=== PATIENT | female | born 1980 | race Native Hawaiian/Other Pacific Islander ===

== ENCOUNTER 2018-10-21 17:35 | Inpatient (IN) ==
[2018-10-21] MEDS ORDERED: Sod Chloride 0.9% Inj 1,000 ML IV.SIG ONE (17:56)
--- NOTE | 2018-10-21 18:06 | ED ---
HPI General Chief complaint: Diabetic Stated complaint: Diabetes/Dizzy Complaint Time Seen by Provider: 10/21/18 17:42 History of Present Illness HPI narrative: This is a 38-year-old female with history of diabetes who presents for evaluation of dizziness and hyperglycemia. She reports that 2 weeks ago she was treated with 3 medications, 1 of them an antibiotic, the other 2 are unknown for treatment of a cough. She reports that she completed these medications 1 week ago. She reports over the past few days she has had dizziness, nausea and vomiting, elevated blood sugar as high as 500 at home. She reports that she still has a dry cough. Denies fevers, chills, chest pain, shortness of breath, abdominal pain, dysuria. She reports that she has been compliant with her farxiga and pioglitazone. No other complaints at this time. Related Data Home Medications Medication Instructions Recorded Confirmed dapagliflozin [Farxiga] 10 mg PO DAILY 10/21/18 10/21/18 pioglitazone 15 mg PO DAILY 10/21/18 10/21/18 Allergies Allergy/AdvReac Type Severity Reaction Status Date / Time No Known Allergies Allergy Verified 10/21/18 17:42 Review of Systems ROS: all other systems reviewed are negative PMFSH Social History Social History Smoking Status: Unknown if ever smoked How Often Do You Have a Drink Containing Alcohol: Unable to Obtain Recent Travel in [facility] within the Last 8 Weeks: No Recent Out of Country Travel within the Last 8 Weeks: No Immunization History Tetanus Immunization: Unsure Exam Narrative Exam Narrative: GENERAL: Well-developed well-nourished female no acute distress SKIN: Warm and dry. HEAD: Atraumatic. Normocephalic. EYES: Pupils equal and round. No scleral icterus. No injection or drainage. ENT: No nasal bleeding or discharge. Mucous membranes pink and moist. NECK: Trachea midline. No JVD. CARDIOVASCULAR: Regular rate and rhythm. No murmur appreciated. RESPIRATORY: No accessory muscle use. Clear to auscultation. Breath sounds equal bilaterally. No crackles no wheezing no rhonchi GASTROINTESTINAL: Abdomen soft, non-tender, nondistended. Hepatic and splenic margins not palpable. No guarding MUSCULOSKELETAL: No obvious deformities. No clubbing. No cyanosis. No edema. NEUROLOGICAL: Awake and alert. No obvious cranial nerve deficits. Motor grossly within normal limits. Normal speech. Course Initial Documented Vital Signs Temperature 97.9 F 10/21/18 17:38 Pulse Rate 102 H 10/21/18 17:38 Respiratory Rate 20 10/21/18 17:38 Blood Pressure 137/63 10/21/18 17:38 Pulse Oximetry 98 10/21/18 17:38 Last Documented Vital Signs Temperature 97.9 F 10/21/18 17:38 Pulse Rate 102 H 10/21/18 17:38 Respiratory Rate 20 10/21/18 17:38 Blood Pressure 137/63 10/21/18 17:38 Pulse Oximetry 98 10/21/18 17:38 Medical Decision Making MDM Narrative Medical decision making narrative: The patient was placed on ECG monitoring pulse oximetry. Lab work, chest x-ray ordered. Patient was given IV fluids and Zofran. EKG was obtained revealing sinus rhythm with 97, QTC is 508, no previous EKGs for comparison. Chest x-ray reveals a left upper lobe infiltrate. The patient will be treated with Rocephin and doxycycline, will avoid fluoroquinolones and macrolides given the QT prolongation. Blood sugars 384, potassium is 3.3, oral potassium chloride, 6 units of insulin administered. The patient will be admitted for further treatment. Medical Screen Exam Complete: Yes Emergency Medical Condition: Yes Differential Diagnosis Differential Diagnosis: Hyperglycemia, DKA, gastroenteritis, bronchitis, pneumonia Lab Data Result diagrams: 10/21/18 18:26 10/21/18 18:26 POC Results POC Urine Results Negative Lab Results 10/21/18 10/21/18 10/21/18 Range/Units 18:26 18:26 18:26 WBC 9.4 (4.0-11.0) th/mm3 RBC 4.17 (4.00-5.30) mil/mm3 Hgb 11.1 L (11.6-15.3) gm/dL Hct 34.6 L (35.0-46.0) % MCV 83.1 (80.0-100.0) fL MCH 26.7 L (27.0-34.0) pg MCHC 32.1 (32.0-36.0) % RDW 14.9 (11.6-17.2) % Plt Count 371 (150-450) th/mm3 MPV 9.1 (7.0-11.0) fL Neut % (Auto) 63.7 (16.0-70.0) % Lymph % (Auto) 25.8 (9.0-44.0) % [place] % (Auto) 6.7 (0.0-8.0) % Eos % (Auto) 3.4 (0.0-4.0) % Baso % (Auto) 0.4 (0.0-2.0) % Neut # (Auto) 6.0 (1.8-7.7) th/mm3 Lymph # (Auto) 2.4 (1.0-4.8) th/mm3 [place] # (Auto) 0.6 (0.0-0.9) th/mm3 Eos # (Auto) 0.3 (0.0-0.4) th/mm3 Baso # (Auto) 0.0 (0.0-0.2) th/mm3 WBC Differential . Differential Comment Auto diff final Sodium 134 L (136-145) meq/L Potassium 3.3 L (3.5-5.1) meq/L Chloride 96 L (98-107) meq/L Carbon Dioxide 30.7 (21.0-32.0) meq/L Anion Gap 7 (5-15) meq/L BUN 13 (7-18) mg/dL Creatinine 0.83 (0.50-1.00) mg/dL Estimated GFR 77 L (>89) mL/min POC Glucose (68-110) mg/dl Random Glucose 384 H (74-106) mg/dL Calcium 8.8 (8.5-10.1) mg/dL Magnesium 1.8 (1.5-2.5) mg/dL Beta-Hydroxybutyric Acd 0.11 (0.00-0.39) mmol/L Urine Color Straw (Yellw/Straw) Urine Clarity Clear (Clear) Urine pH 7.0 (5.0-8.5) Ur Specific [place] 1.015 (1.002-1.035) Urine Protein Negative (Neg-Trace) mg/dL Urine Glucose (UA) 500 or greater (Negative) mg/dL Urine Ketones Negative (Negative) mg/dL Urine Occult Blood Negative (Negative) Urine Nitrate Negative (Negative) Urine Bilirubin Negative (Negative) Urine Urobilinogen Less than 2 (Less than 2) mg/dL Ur Leukocyte Esterase Negative (Negative) Urine RBC Less than 1 (0-3) /hpf Urine WBC 1 (0-5) /hpf Ur Squamous Epith Cells 3 (0-5) /hpf Micro UA Comment Culture not ind Ur Microscopic Review Not Reportable Urine Culture Comments Culture not ind 10/21/18 10/21/18 Range/Units 18:26 18:53 WBC (4.0-11.0) th/mm3 RBC (4.00-5.30) mil/mm3 Hgb (11.6-15.3) gm/dL Hct (35.0-46.0) % MCV (80.0-100.0) fL MCH (27.0-34.0) pg MCHC (32.0-36.0) % RDW (11.6-17.2) % Plt Count (150-450) th/mm3 MPV (7.0-11.0) fL Neut % (Auto) (16.0-70.0) % Lymph % (Auto) (9.0-44.0) % [place] % (Auto) (0.0-8.0) % Eos % (Auto) (0.0-4.0) % Baso % (Auto) (0.0-2.0) % Neut # (Auto) (1.8-7.7) th/mm3 Lymph # (Auto) (1.0-4.8) th/mm3 [place] # (Auto) (0.0-0.9) th/mm3 Eos # (Auto) (0.0-0.4) th/mm3 Baso # (Auto) (0.0-0.2) th/mm3 WBC Differential Differential Comment Sodium (136-145) meq/L Potassium (3.5-5.1) meq/L Chloride (98-107) meq/L Carbon Dioxide (21.0-32.0) meq/L Anion Gap (5-15) meq/L BUN (7-18) mg/dL Creatinine (0.50-1.00) mg/dL Estimated GFR (>89) mL/min POC Glucose 367 H (68-110) mg/dl Random Glucose (74-106) mg/dL Calcium (8.5-10.1) mg/dL Magnesium Cancelled (1.5-2.5) mg/dL Beta-Hydroxybutyric Acd (0.00-0.39) mmol/L Urine Color (Yellw/Straw) Urine Clarity (Clear) Urine pH (5.0-8.5) Ur Specific [place] (1.002-1.035) Urine Protein (Neg-Trace) mg/dL Urine Glucose (UA) (Negative) mg/dL Urine Ketones (Negative) mg/dL Urine Occult Blood (Negative) Urine Nitrate (Negative) Urine Bilirubin (Negative) Urine Urobilinogen (Less than 2) mg/dL Ur Leukocyte Esterase (Negative) Urine RBC (0-3) /hpf Urine WBC (0-5) /hpf Ur Squamous Epith Cells (0-5) /hpf Micro UA Comment Ur Microscopic Review Urine Culture Comments Imaging Data Radiologist's impression: Chest X-Ray 10/21/18 17:56 CONCLUSION: 1. Ill-defined focal parenchymal opacity in the left upper lobe medially which may reflect developing airspace disease in the appropriate clinical setting. Discharge Plan Discharge Disposition Patient Disposition: ED Admit(ED Internal Use Only) Discharge Condition Condition: Stable Discharge Details Diagnosis: Pneumonia, Prolonged QT interval, Hyperglycemia Physicians Team ED Provider: Della Johnson ED Midlevel Provider: Israel Salas Primary Care Provider: Primary Care Yadira Mendoza Rxs /Orders / Referrals /Forms Prescriptions: No Action pioglitazone 15 mg Tablet 15 mg PO DAILY RF: 0 dapagliflozin [Farxiga] 10 mg Tablet 10 mg PO DAILY RF: 0 Status ED Status: Pending Admission
--- NOTE | 2018-10-21 18:24 | XR ---
EXAM DATE: 10/21/2018 6:17 PM EST AGE/SEX: 38 years / Female INDICATIONS: Cough and dizziness. CLINICAL DATA: This is the patient's initial encounter. Patient reports that signs and symptoms have been present for 1 day and indicates a pain score of 0/10. MEDICAL/SURGICAL HISTORY: Diabetes mellitus type II. None. COMPARISON: . FINDINGS: Focal ill-defined parenchymal opacity in the left upper lobe medially. The cardiomediastinal contours are unremarkable. Osseous structures are intact. CONCLUSION: 1. Ill-defined focal parenchymal opacity in the left upper lobe medially which may reflect developin g airspace disease in the appropriate clinical setting. Electronically signed by: Syed Blackmon MD Board Certified Radiologist 10/21/2018 6:23 PM LUIS A T
[2018-10-21 18:54] LABS: Baso % (Auto) 0.4 % (0.0-2.0); Eos # (Auto) 0.3 th/mm3 (0.0-0.4); Eos % (Auto) 3.4 % (0.0-4.0); Hematocrit 34.6 % (35.0-46.0); Hemoglobin 11.1 gm/dL (11.6-15.3); Lymph # (Auto) 2.4 th/mm3 (1.0-4.8); Lymph % (Auto) 25.8 % (9.0-44.0); Mean Corpuscular HGB Conc 32.1 % (32.0-36.0); Mean Corpuscular Hemoglobin 26.7 pg (27.0-34.0); Mean Corpuscular Volume 83.1 fL (80.0-100.0); Mean Platelet Volume 9.1 fL (7.0-11.0); Mono # (Auto) 0.6 th/mm3 (0.0-0.9); Mono % (Auto) 6.7 % (0.0-8.0); Neut % (Auto) 63.7 % (16.0-70.0); Platelet Count 371 th/mm3 (150-450); Red Blood Count 4.17 mil/mm3 (4.00-5.30); Red Cell Distribution Width 14.9 % (11.6-17.2); White Blood Count 9.4 th/mm3 (4.0-11.0)
[2018-10-21 19:09] LABS: Bilirubin,Urine Negative (Negative); Clarity,Urine Clear (Clear); Color,Urine Straw (Yellw/Straw); Glucose,Urine (UA) 500 or Greater mg/dL (Negative); Leukocyte Esterase,Urine Negative (Negative); Nitrite,Urine Negative (Negative); Specific Gravity,Urine 1.015 (1.002-1.035); Squamous Epithelial Cell,Urine 3 /hpf (0-5)
[2018-10-21 19:23] LABS: Calcium 8.8 mg/dL (8.5-10.1); Carbon Dioxide 30.7 meq/L (21.0-32.0); Potassium 3.3 meq/L (3.5-5.1)
[2018-10-21 19:24] LABS: Beta Hydroxybutyric Acid 0.11 mmol/L (0.00-0.39)
[2018-10-21 19:42] LABS: Magnesium 1.8 mg/dL (1.5-2.5)
--- NOTE | 2018-10-21 20:31 | P.HPFP ---
History of Present Illness Primary Care Physician: No Primary Care Physician <Con Camp - 10/22/18 15:10> No Primary Care Physician <ReynaldoBan Lima Espinoza - 10/21/18 20:31> History of Present Illness: 30-year-old female presenting to the emergency department with a complaint of elevated blood sugars and coughing. Patient has been seen in [facility] for uncontrolled blood sugars associated with vomiting and dizziness for 4-5 days. She endorses dizziness associated with this nausea and vomiting. She also endorses nausea. She does check her blood sugars at home, they are commonly in the 100-150 range, however they have been running in the 400-500 range over the last several days. Patient also has a persistent, dry cough lasting approximately 4-5 months. She has been evaluated with a chest x-ray on 05/19/18 that was negative, and recently completed a course of azithromycin and prednisone with minimal improvement. <Con Camp - 10/22/18 15:10> 30-year-old female with a history of uncontrolled type 2 diabetes and hyperlipidemia presents to the ED for elevated blood sugars. She is a patient of Dr. Vega. Patient is here with her daughter. Patient was just recently seen in family medicine clinic yesterday for uncontrolled blood sugars associated with vomiting and dizziness. Patient was advised to go to the ER at that time. Patient states that she was busy picking up her kids yesterday and did not have a chance to come to the ED. Patient states that she has been feeling dizzy 2-3 times every day for the past week. States that she is also been nauseous and dry heaving. She usually checks her sugars when she is feeling these symptoms and states that her sugars have been around 400-500 every day. Patient states that she is currently on pioglitazone 50 mg daily and Farxiga 10mg daily. Reports that she takes an extra dose of her pioglitazone as needed when her sugars are high. Per [facility] EMR, patient has been unable to be scheduled with the import specialist due to noncompliance. It was noted that she needed to first attend a diabetic education class and it was recommended that she be started on Bydureon 2mg Subq 1week. She is very hesitant about being on insulin and was unable to follow-up with Dr. Koehler about administration of the drug. Last A1c was on 09/23/18, 10.2%. Patient also complains of a 4-5-month history of persistent dry cough. She was prescribed at the clinic 2 weeks ago, 3-day of azithromycin, 5-day of prednisone , tessalon pearls, and nasacort. Chest x-ray on 05/19/18 was negative. Patient states that it smells like fish when she coughs. She denies any bloody sputum. Patient was born in [facility] and was last there 13 years ago. Patient has never been tested for tuberculosis. Denies sick contacts, fevers, night sweats , chills, weight loss, shortness of breath, and chest pain. PMHx: Type 2 diabetes hyperlipidemia PSHx: 1998, 2001, 2002 Allergies: none FHx: Dad- HTN, DM-60s- stroke Mom- DM- 50- stroke Brothers-DM SHx: Housework 3 kids never smoker Denies drinking Denies illicit drug use <Ban Jacobs - 10/22/18 02:11> - Diagnosis (1) Uncontrolled type 2 diabetes mellitus (2) Pneumonia (3) Prolonged QT interval (4) Hypokalemia (5) Anemia (6) Hyperlipidemia (7) Nutrition, metabolism, and development symptoms <Con Camp - 10/22/18 15:10> (1) Uncontrolled type 2 diabetes mellitus (2) Pneumonia (3) Prolonged QT interval (4) Hypokalemia (5) Anemia (6) Hyperlipidemia (7) Nutrition, metabolism, and development symptoms <Ban Jacobs - 10/22/18 02:14> Inpatient Certification: I certify that the inpatient services were ordered in accordance with Medicare regulations governing the order. This includes certification that hospital inpatient services are reasonable and necessary and in the case of services not specified as inpatient-only under 42 CFR 419.22(n), that they are appropriately provided as inpatient services in accordance to with the 2-midnight benchmark under 43 CFR 412.3(e) <Con Camp - 10/22/18 15:10> I certify that the inpatient services were ordered in accordance with Medicare regulations governing the order. This includes certification that hospital inpatient services are reasonable and necessary and in the case of services not specified as inpatient-only under 42 CFR 419.22(n), that they are appropriately provided as inpatient services in accordance to with the 2-midnight benchmark under 43 CFR 412.3(e) <Ban Jacobs - 10/21/18 20:31> Estimated Total Length of Stay (Days): 2 <Ban Jacobs Alexis - 10/21/18 20:31> Plans for Post Hospital Care: Home <Ban Jacobs 10/21/18 20:31> Review of Systems All other systems reviewed negative except as stated in HPI <Ban Jacobs - 10/22/18 00:51> PMFSH - History History Provided By: Patient <ReynaldoBan Espinoza - 10/21/18 20:31> - Medical History Medical History: Medical History (Last Updated 10/22/18 @ 00:10 by Ban Jacobs MD, R2) Diabetes Hyperlipidemia <Con Camp - 10/22/18 15:10> Medical History (Last Updated 10/22/18 @ 00:10 by Ban Jacobs MD, R2) Diabetes Hyperlipidemia <Ban Jacobs - 10/22/18 00:51> - Surgical History Surgical History: Surgical History (Last Updated 10/22/18 @ 00:11 by Ban Jacobs MD, R2) S/P <Con Camp - 10/22/18 15:10> Surgical History (Last Updated 10/22/18 @ 00:11 by Ban Jacobs MD, R2) S/P <Ban Jacobs - 10/22/18 00:51> - Family History Family History: Family History (Last Updated 10/22/18 @ 01:53 by Ban Jacobs MD, R2) Mother CVA (cerebral vascular accident) Diabetes HTN (hypertension) Father CVA (cerebral vascular accident) Diabetes HTN (hypertension) <Con Camp - 10/22/18 15:10> Family History (Last Updated 10/22/18 @ 01:53 by Ban Jacobs MD, R2) Mother CVA (cerebral vascular accident) Diabetes HTN (hypertension) Father CVA (cerebral vascular accident) Diabetes HTN (hypertension) <Ban Jacobs - 10/22/18 01:55> - Social History I have reviewed the patient's Social History: Yes <Ban Jacobs T - 01:55> - Tobacco History Smoking Status: Never smoker <Ban Jacobs - 10/22/18 00:51> - Alcohol History How Often Do You Have a Drink Containing Alcohol: Unable to Obtain <Ban Jacobs T - 10/21/18 20:31> - Travel History Recent Travel in the [place] Within the Last 8 Weeks: No <Ban Jacobs Amato T - 10/21 20:31> Recent Travel Out of the Country Within the Last 8 Weeks: No <Ban Jacobs T - 10/21/18 20:31> - Immunization History Tetanus Immunization: Unsure <Ban Jacobs Amato - 10/21/18 20:31> Medications and Allergies Allergies Allergy/AdvReac Type Severity Reaction Status Date / Time No Known Allergies Allergy Verified 10/21/18 17:42 <Con Camp - 10/22/18 15:10> Home Medications Medication Instructions Recorded Confirmed Type dapagliflozin [Farxiga] 10 mg PO DAILY 10/21/18 10/21/18 History pioglitazone 15 mg PO DAILY 10/21/18 10/21/18 History <Con Camp - 10/22/18 15:10> Active Medications: Active Medications Acetaminophen (Tylenol) 650 mg PO Q4H PRN PRN Reason: Headache and Pain Last Admin: 10/22/18 13:43 Dose: 650 mg Atorvastatin Calcium (Lipitor) 40 mg PO HS DARELL Dextrose (D50w Vial) 50 ml IV.PUSH UNSCH PRN PRN Reason: PER HYPOGLYCEMIA PROTOCOL Glucagon (Glucagon Inj) 1 mg OTHER PRN PRN PRN Reason: for Hypoglycemia Protocol Ceftriaxone Sodium 1,000 mg/ (Sodium Chloride) 100 mls @ 200 mls/hr IV.SIG Q24H DARELL Doxycycline Hyclate 100 mg/ (Sodium Chloride) 100 mls @ 100 mls/hr IV.SIG Q12H DARELL Last Infusion: 10/22/18 12:45 Dose: Infused Insulin Aspart (Novolog Insulin Correctional Sugar Inj) 0 unit SQ ACHS DARELL; Protocol Last Admin: 10/22/18 13:56 Dose: 5 unit Insulin Detemir (Levemir Inj) 5 unit SQ BID DARELL Last Admin: 10/22/18 09:47 Dose: 5 unit Promethazine HCl (Phenergan) 12.5 mg PO Q6H PRN PRN Reason: nausea/vomiting Skin Test Antigens (Skin Test Result) 1 each OTHER Q24H DARELL Stop: 10/24/18 21:14 Sodium Chloride (Ns Flush) 2 ml IV.FLUSH BID DARELL Last Admin: 10/22/18 11:41 Dose: 2 ml Sodium Chloride (Ns Flush) 2 ml IV.FLUSH PRN PRN PRN Reason: FLUSH AFTER USING IV ACCESS <Con Camp - 10/22/18 15:10> Active Medications Sodium Chloride (Ns Flush) 2 ml IV.FLUSH PRN PRN PRN Reason: FLUSH AFTER USING IV ACCESS Sodium Chloride (Ns Flush) 2 ml IV.FLUSH BID DARELL Sodium Chloride (Ns Flush) 2 ml IV.FLUSH PRN PRN PRN Reason: FLUSH AFTER USING IV ACCESS <Ban Jacobs T - 10/21/18 20:31> Exam Vital signs: Vital Signs 10/21/18 17:38 10/21/18 21:29 10/22/18 04:24 Temperature 97.9 F 97.6 F Pulse Rate 102 H 94 H 84 Respiratory Rate 20 18 18 Blood Pressure 137/63 119/59 L 108/61 Pulse Oximetry 98 99 96 10/22/18 08:00 10/22/18 12:00 Temperature 98.2 F 98.4 F Pulse Rate 83 81 Respiratory Rate 16 16 Blood Pressure 109/61 100/64 Pulse Oximetry 96 99 Intake & Output 10/21/18 10/22/18 10/22/18 18:59 06:59 18:59 Intake Total 1440 / 1440 100 / 100 Balance 1440 / 1440 100 / 100 Weight 58.967 kg Intake: IV 1200 / 1200 100 / 100 Doxy 100 Inj 100 MG In NS Inj 100 / 100 100 / 100 100 ML @ 100 mls/hr IV.SIG Q12H DARELL Rx#:[id number] Oral 240 / 240 Other: # Voids 0 <Con Camp - 10/22/18 15:10> Vital Signs 10/21/18 17:38 Temperature 97.9 F Pulse Rate 102 H Respiratory Rate 20 Blood Pressure 137/63 Pulse Oximetry 98 Intake & Output 10/21/18 10/21/18 10/22/18 06:59 18:59 06:59 Weight 58.967 kg <Ban Jacobs [facility] 10/21/18 20:31> Narrative: CONSTITUTIONAL/GEN: Healthy-appearing female, normally nourished, in NAD. EYES: conjunctiva normal, PERRLA, EOMI. ENT: Mouth and pharynx normal. LUNGS: clear A-P, respiratory effort is normal. PSYCH/MENTAL STATUS: Alert and oriented x 3. <Con Camp - 10/22/18 15:10> - Constitutional no acute distress <Ban Jacobs [facility] 10/22/18 01:55> - Routine HEENT Exam Head: Present: normocephalic, atraumatic <Ban Jacobs 10/22/18 01:55> Eye: Present: EOMI, PERRL <Ban Jacobs [facility] 10/22/18 01:55> ENT: Present: mucous membranes moist <Ban Jacobs [facility] 10/22/18 01:55> - Routine Neck Exam Present: supple, full ROM. Absent: JVD, carotid bruit <Ban Jacobs [facility] 01:55> - Routine Respiratory Exam Present: CTA bilaterally. Absent: accessory muscle use, wheezes, crackles < Ban Jacobs 10/22/18 01:55> - Routine Cardiovascular Exam Present: RRR, S1, S2. Absent: murmur, gallop, rubs <Ban Jacobs [facility] 01:55> - Routine Abdominal Exam Present: soft, normoactive bowel sounds. Absent: tenderness, rebound, guarding <Ban Jacobs [facility] 10/22/18 01:55> - Routine Extremities Exam Absent: cyanosis, clubbing, edema <Ban Jacobs [facility] 10/22/18 01:55> - Routine Neurological Exam Present: alert, oriented X3 <Ban Jacobs [facility] 10/22/18 01:55> Results - Labs Result diagrams: 10/22/18 06:51 10/22/18 06:51 <Con Camp - 10/22/18 15:10> Abnormal lab results 10/21/18 10/21/18 10/21/18 Range/Units 18:26 18:26 18:53 Hgb 11.1 L (11.6-15.3) gm/dL Hct 34.6 L (35.0-46.0) % MCH 26.7 L (27.0-34.0) pg Eos % (Auto) (0.0-4.0) % Sodium 134 L (136-145) meq/L Potassium 3.3 L (3.5-5.1) meq/L Chloride 96 L (98-107) meq/L Estimated GFR 77 L (>89) mL/min POC Glucose 367 H (68-110) mg/dl Random Glucose 384 H (74-106) mg/dL AST (15-37) U/L Albumin (3.4-5.0) g/dL 10/22/18 10/22/18 10/22/18 Range/Units 01:58 06:51 06:51 Hgb (11.6-15.3) gm/dL Hct (35.0-46.0) % MCH 26.9 L (27.0-34.0) pg Eos % (Auto) 4.6 H (0.0-4.0) % Sodium (136-145) meq/L Potassium 3.3 L (3.5-5.1) meq/L Chloride (98-107) meq/L Estimated GFR (>89) mL/min POC Glucose 116 H (68-110) mg/dl Random Glucose 154 H D (74-106) mg/dL AST 12 L (15-37) U/L Albumin 3.1 L (3.4-5.0) g/dL 10/22/18 10/22/18 Range/Units 09:45 13:47 Hgb (11.6-15.3) gm/dL Hct (35.0-46.0) % MCH (27.0-34.0) pg Eos % (Auto) (0.0-4.0) % Sodium (136-145) meq/L Potassium (3.5-5.1) meq/L Chloride (98-107) meq/L Estimated GFR (>89) mL/min POC Glucose 153 H 256 H (68-110) mg/dl Random Glucose (74-106) mg/dL AST (15-37) U/L Albumin (3.4-5.0) g/dL Short CBC 10/21/18 10/22/18 Range/Units 18:26 06:51 WBC 9.4 8.7 (4.0-11.0) th/mm3 Hgb 11.1 L 11.7 (11.6-15.3) gm/dL Hct 34.6 L 36.2 (35.0-46.0) % Plt Count 371 402 (150-450) th/mm3 BMP 10/21/18 10/22/18 18:26 06:51 Sodium 134 L 141 Potassium 3.3 L 3.3 L Chloride 96 L 103 Carbon Dioxide 30.7 31.7 BUN 13 8 Creatinine 0.83 0.58 Calcium 8.8 8.7 Liver Function 10/22/18 Range/Units 06:51 Total Bilirubin 0.3 (0.2-1.0) mg/dL AST 12 L (15-37) U/L ALT 17 (10-53) U/L Alkaline Phosphatase 61 (45-117) U/L Albumin 3.1 L (3.4-5.0) g/dL Urine 10/21/18 Range/Units 18:26 Urine Color Straw (Yellw/Straw) Urine Clarity Clear (Clear) Urine pH 7.0 (5.0-8.5) Ur Specific [place] 1.015 (1.002-1.035) Urine Protein Negative (Neg-Trace) mg/dL Urine Glucose (UA) 500 or greater (Negative) mg/dL <Con Capm - 10/22/18 15:10> Abnormal lab results 10/21/18 10/21/18 10/21/18 Range/Units 18:26 18:26 18:53 Hgb 11.1 L (11.6-15.3) gm/dL Hct 34.6 L (35.0-46.0) % MCH 26.7 L (27.0-34.0) pg Sodium 134 L (136-145) meq/L Potassium 3.3 L (3.5-5.1) meq/L Chloride 96 L (98-107) meq/L Estimated GFR 77 L (>89) mL/min POC Glucose 367 H (68-110) mg/dl Random Glucose 384 H (74-106) mg/dL Short CBC 10/21/18 Range/Units 18:26 WBC 9.4 (4.0-11.0) th/mm3 Hgb 11.1 L (11.6-15.3) gm/dL Hct 34.6 L (35.0-46.0) % Plt Count 371 (150-450) th/mm3 BMP 10/21/18 18:26 Sodium 134 L Potassium 3.3 L Chloride 96 L Carbon Dioxide 30.7 BUN 13 Creatinine 0.83 Calcium 8.8 Urine 10/21/18 Range/Units 18:26 Urine Color Straw (Yellw/Straw) Urine Clarity Clear (Clear) Urine pH 7.0 (5.0-8.5) Ur Specific [place] 1.015 (1.002-1.035) Urine Protein Negative (Neg-Trace) mg/dL Urine Glucose (UA) 500 or greater (Negative) mg/dL <Ban Jacobs T - 10/22/18 01:55> - Imaging Impressions Chest X-Ray 10/21/18 17:56 CONCLUSION: 1. Ill-defined focal parenchymal opacity in the left upper lobe medially which may reflect developing airspace disease in the appropriate clinical setting. Chest X-Ray 10/22/18 00:00 CONCLUSION: No acute cardiopulmonary disease. <Con Camp - 10/22/18 15:10> Impressions Chest X-Ray 10/21/18 17:56 CONCLUSION: 1. Ill-defined focal parenchymal opacity in the left upper lobe medially which may reflect developing airspace disease in the appropriate clinical setting. <Ban Jacobs T - 10/22/18 01:55> Caprini VTE Risk Assessment Caprini VTE Risk Assessment: No/Low Risk (score <= 1) <Ban Jacobs T - 01:55> Caprini Risk Assessment Model: Point Value = 1 Point Value = 2 Point Value = 3 Point Value = 5 Age 41-60 Minor surgery BMI > 25 kg/m2 Swollen legs Varicose veins or History of unexplained or recurrent spontaneous Oral contraceptives or hormone replacement Sepsis (< 1 month) Serious lung disease, including pneumonia (< 1 month) Abnormal pulmonary function Acute myocardial infarction Congestive heart failure (< 1 month) History of inflammatory bowel disease Medical patient at bed rest Age 61-74 Arthroscopic surgery Major open surgery (> 45 min) Laparoscopic surgery (> 45 min) Malignancy Confined to bed (> 72 hours) Immobilizing plaster cast Central venous access Age >= 75 History of VTE Family history of VTE Factor V Leiden Prothrombin [id number] Lupus anticoagulant Anticardiolipin antibodies Elevated serum homocysteine Heparin-induced thrombocytopenia Other congenital or acquired thrombophilia Stroke (< 1 month) Elective arthroplasty Hip, pelvis, or leg fracture Acute spinal cord injury (< 1 month) <Con Camp - 10/22/18 15:10> Point Value = 1 Point Value = 2 Point Value = 3 Point Value = 5 Age 41-60 Minor surgery BMI > 25 kg/m2 Swollen legs Varicose veins or History of unexplained or recurrent spontaneous Oral contraceptives or hormone replacement Sepsis (< 1 month) Serious lung disease, including pneumonia (< 1 month) Abnormal pulmonary function Acute myocardial infarction Congestive heart failure (< 1 month) History of inflammatory bowel disease Medical patient at bed rest Age 61-74 Arthroscopic surgery Major open surgery (> 45 min) Laparoscopic surgery (> 45 min) Malignancy Confined to bed (> 72 hours) Immobilizing plaster cast Central venous access Age >= 75 History of VTE Family history of VTE Factor V Leiden Prothrombin [id number] Lupus anticoagulant Anticardiolipin antibodies Elevated serum homocysteine Heparin-induced thrombocytopenia Other congenital or acquired thrombophilia Stroke (< 1 month) Elective arthroplasty Hip, pelvis, or leg fracture Acute spinal cord injury (< 1 month) <Ban Jacobs - 10/22/18 01:55> Prophylaxis Regimen: Total Risk Factor Score Risk Level Prophylaxis Regimen 0-1 Low Early ambulation 2 Moderate Order ONE of the following: *Sequential Compression Device (SCD) *Heparin 5000 units SQ BID 3-4 Higher Order ONE of the following medications: *Heparin 5000 units SQ TID *Enoxaparin/Lovenox 40 mg SQ daily (WT < 150 kg, CrCl > 30 mL/min) *Enoxaparin/Lovenox 30 mg SQ daily (WT < 150 kg, CrCl > 10-29 mL/min) *Enoxaparin/Lovenox 30 mg SQ BID (WT < 150 kg, CrCl > 30 mL/min) AND/OR *Sequential Compression Device (SCD) 5 or more Highest Order ONE of the following medications: *Heparin 5000 units SQ TID (Preferred with Epidurals) *Enoxaparin/Lovenox 40 mg SQ daily (WT < 150 kg, CrCl > 30 mL/min) *Enoxaparin/Lovenox 30 mg SQ daily (WT < 150 kg, CrCl > 10-29 mL/min) *Enoxaparin/Lovenox 30 mg SQ BID (WT < 150 kg, CrCl > 30 mL/min) AND *Sequential Compression Device (SCD) <Con Camp - 10/22/18 15:10> Total Risk Factor Score Risk Level Prophylaxis Regimen 0-1 Low Early ambulation 2 Moderate Order ONE of the following: *Sequential Compression Device (SCD) *Heparin 5000 units SQ BID 3-4 Higher Order ONE of the following medications: *Heparin 5000 units SQ TID *Enoxaparin/Lovenox 40 mg SQ daily (WT < 150 kg, CrCl > 30 mL/min) *Enoxaparin/Lovenox 30 mg SQ daily (WT < 150 kg, CrCl > 10-29 mL/min) *Enoxaparin/Lovenox 30 mg SQ BID (WT < 150 kg, CrCl > 30 mL/min) AND/OR *Sequential Compression Device (SCD) 5 or more Highest Order ONE of the following medications: *Heparin 5000 units SQ TID (Preferred with Epidurals) *Enoxaparin/Lovenox 40 mg SQ daily (WT < 150 kg, CrCl > 30 mL/min) *Enoxaparin/Lovenox 30 mg SQ daily (WT < 150 kg, CrCl > 10-29 mL/min) *Enoxaparin/Lovenox 30 mg SQ BID (WT < 150 kg, CrCl > 30 mL/min) AND *Sequential Compression Device (SCD) <Ban Jacobs T - 10/21/18 20:31> Assessment and Plan - Assessment (1) Uncontrolled type 2 diabetes mellitus Code(s): E11.65 - Type 2 diabetes mellitus with hyperglycemia Status: Acute (2) Pneumonia Code(s): J18.9 - Pneumonia, unspecified organism Status: Acute (3) Prolonged QT interval Code(s): R94.31 - Abnormal electrocardiogram [ECG] [EKG] Status: Acute (4) Hypokalemia Code(s): E87.6 - Hypokalemia Status: Acute (5) Anemia Code(s): D64.9 - Anemia, unspecified Status: Acute (6) Hyperlipidemia Code(s): E78.5 - Hyperlipidemia, unspecified Status: Acute (7) Nutrition, metabolism, and development symptoms Code(s): R63.8 - Other symptoms and signs concerning food and fluid intake Status: Acute <Con Camp - 10/22/18 15:10> (1) Uncontrolled type 2 diabetes mellitus Code(s): E11.65 - Type 2 diabetes mellitus with hyperglycemia Status: Acute Plan: 30-year-old female with a history of uncontrolled type 2 diabetes and hyperlipidemia presents to the ED dizziness and nausea secondary to elevated blood sugars. -Reports her sugars being 400- 500 at home -A1C on 09/23/18, 10.2% -CMP demonstrates anion gap of 7 -Held home PO meds: dapagliflozin and pioglitazone -Will start patient on Levemir 5units BID and low dose SS -Hypoglycemia protocol in place -roastmaster and Bulk Station Agent consulted (2) Pneumonia Code(s): J18.9 - Pneumonia, unspecified organism Status: Acute Plan: Patient reports 4-5-month history of persistent dry cough. DDx: Bacterial pneumonia vs viral pneumonia vs TB -Chest x-ray demonstrates ill-defined focal parenchymal opacity in the left upper lobe medially which may reflect developing airspace disease. -Pro-calcitonin of 0.04 -Negative for influenza A and B -Legionella and pneumococcal antigen pending -Tuberculin PPD test ordered -Blood cultures x2 pending -Continue Rocephin 1 g IV every 24 hours and doxycycline 100 mg every 12 hours IV (3) Prolonged QT interval Code(s): R94.31 - Abnormal electrocardiogram [ECG] [EKG] Status: Acute Plan: Prolonged QT interval seen on EKG, QTc 517 Continue to monitor with cardiac telemetry Avoid agents that may prolong QT interval (4) Hypokalemia Code(s): E87.6 - Hypokalemia Status: Acute Plan: Potassium 3.3 on admission Patient received 20 mEq orally in the ED Continue to monitor and replace as needed (5) Anemia Code(s): D64.9 - Anemia, unspecified Status: Acute Plan: H&H of 11.1/34.6, MCV of 83.1, most likely due to anemia of chronic disease (6) Hyperlipidemia Code(s): E78.5 - Hyperlipidemia, unspecified Status: Acute Plan: Continue atorvastatin 20 mg at bedtime (7) Nutrition, metabolism, and development symptoms Code(s): R63.8 - Other symptoms and signs concerning food and fluid intake Status: Acute Plan: Fluids: None Diet: Diabetic diet Electrolytes: Monitor and replace as needed Vitals every 4, monitor I's and O's DVT prophylaxis: SCDs <Ban Jacobs - 10/22/18 02:14> - Attending Attestation Patient examined independently of resident physicians, case discussed with resident physicians I have read the above note and agree with the assessment/plan as discussed with me I was involved in all medical decision making for this patient Pneumonia: Antibiotics with Rocephin and doxycycline as patient recently completed a course of azithromycin Legionella and pneumococcal antigen ordered and pending Blood cultures ordered and pending Con Camp MD <Con Camp - 10/22/18 15:10>
[2018-10-21] MEDS ORDERED: Dextrose 50% in Water 50 ML Vial IV.PUSH PRN (20:58)
[2018-10-21] MEDS ORDERED: Tuberculin PPD 5 UNITS/0.1 ML Syringe I-DERMAL ONE (22:00)
[2018-10-21] MEDS: Insulin Detemir Inj 1,000 UNIT/10 ML Vial SQ SCH (23:45)
[2018-10-22] MEDS: Insulin NovoLOG Aspart Correctional Sugar Inj SQ SCH ×5 (02:27→22:02)
[2018-10-22 08:36] LABS: Baso % (Auto) 0.3 % (0.0-2.0); Eos # (Auto) 0.4 th/mm3 (0.0-0.4); Eos % (Auto) 4.6 % (0.0-4.0); Hematocrit 36.2 % (35.0-46.0); Hemoglobin 11.7 gm/dL (11.6-15.3); Lymph # (Auto) 2.3 th/mm3 (1.0-4.8); Lymph % (Auto) 26.2 % (9.0-44.0); Mean Corpuscular HGB Conc 32.4 % (32.0-36.0); Mean Corpuscular Hemoglobin 26.9 pg (27.0-34.0); Mean Corpuscular Volume 83.1 fL (80.0-100.0); Mean Platelet Volume 9.3 fL (7.0-11.0); Mono # (Auto) 0.5 th/mm3 (0.0-0.9); Mono % (Auto) 5.3 % (0.0-8.0); Neut # (Auto) 5.5 th/mm3 (1.8-7.7); Neut % (Auto) 63.6 % (16.0-70.0); Platelet Count 402 th/mm3 (150-450); Red Blood Count 4.35 mil/mm3 (4.00-5.30); White Blood Count 8.7 th/mm3 (4.0-11.0)
--- NOTE | 2018-10-22 09:19 | P.PNFP ---
Subjective Interval history: Patient seen and examined at bedside this morning.She states that she continues to see feel nauseous this morning. Confirms a mild headache. Denies any vomiting overnight. Is open to trying insulin today. Will be open to diabetes education. She also confirms some itching of her feet bilaterally. Is requesting that only female nurses take care of her due to her restoration beliefs. Is able to talk to male providers but cannot have any physical touch. All questions were answered at bedside. She denies any chest pain, shortness of breath, abdominal pain, problems with urination or defecation. <Eraline Woody - 10/22/18 10:11> Results - Labs Result diagrams: 10/22/18 06:51 10/22/18 06:51 <Con Camp - 10/22/18 14:53> Abnormal lab results 10/21/18 10/21/18 10/21/18 Range/Units 18:26 18:26 18:53 Hgb 11.1 L (11.6-15.3) gm/dL Hct 34.6 L (35.0-46.0) % MCH 26.7 L (27.0-34.0) pg Eos % (Auto) (0.0-4.0) % Sodium 134 L (136-145) meq/L Potassium 3.3 L (3.5-5.1) meq/L Chloride 96 L (98-107) meq/L Estimated GFR 77 L (>89) mL/min POC Glucose 367 H (68-110) mg/dl Random Glucose 384 H (74-106) mg/dL AST (15-37) U/L Albumin (3.4-5.0) g/dL 10/22/18 10/22/18 10/22/18 Range/Units 01:58 06:51 06:51 Hgb (11.6-15.3) gm/dL Hct (35.0-46.0) % MCH 26.9 L (27.0-34.0) pg Eos % (Auto) 4.6 H (0.0-4.0) % Sodium (136-145) meq/L Potassium 3.3 L (3.5-5.1) meq/L Chloride (98-107) meq/L Estimated GFR (>89) mL/min POC Glucose 116 H (68-110) mg/dl Random Glucose 154 H D (74-106) mg/dL AST 12 L (15-37) U/L Albumin 3.1 L (3.4-5.0) g/dL 10/22/18 10/22/18 Range/Units 09:45 13:47 Hgb (11.6-15.3) gm/dL Hct (35.0-46.0) % MCH (27.0-34.0) pg Eos % (Auto) (0.0-4.0) % Sodium (136-145) meq/L Potassium (3.5-5.1) meq/L Chloride (98-107) meq/L Estimated GFR (>89) mL/min POC Glucose 153 H 256 H (68-110) mg/dl Random Glucose (74-106) mg/dL AST (15-37) U/L Albumin (3.4-5.0) g/dL Short CBC 10/21/18 10/22/18 Range/Units 18:26 06:51 WBC 9.4 8.7 (4.0-11.0) th/mm3 Hgb 11.1 L 11.7 (11.6-15.3) gm/dL Hct 34.6 L 36.2 (35.0-46.0) % Plt Count 371 402 (150-450) th/mm3 BMP 10/21/18 10/22/18 18:26 06:51 Sodium 134 L 141 Potassium 3.3 L 3.3 L Chloride 96 L 103 Carbon Dioxide 30.7 31.7 BUN 13 8 Creatinine 0.83 0.58 Calcium 8.8 8.7 Liver Function 10/22/18 Range/Units 06:51 Total Bilirubin 0.3 (0.2-1.0) mg/dL AST 12 L (15-37) U/L ALT 17 (10-53) U/L Alkaline Phosphatase 61 (45-117) U/L Albumin 3.1 L (3.4-5.0) g/dL Urine 10/21/18 Range/Units 18:26 Urine Color Straw (Yellw/Straw) Urine Clarity Clear (Clear) Urine pH 7.0 (5.0-8.5) Ur Specific [place] 1.015 (1.002-1.035) Urine Protein Negative (Neg-Trace) mg/dL Urine Glucose (UA) 500 or greater (Negative) mg/dL <Con Camp - 10/22/18 14:53> Abnormal lab results 10/21/18 10/21/18 10/21/18 Range/Units 18:26 18:26 18:53 Hgb 11.1 L (11.6-15.3) gm/dL Hct 34.6 L (35.0-46.0) % MCH 26.7 L (27.0-34.0) pg Eos % (Auto) (0.0-4.0) % Sodium 134 L (136-145) meq/L Potassium 3.3 L (3.5-5.1) meq/L Chloride 96 L (98-107) meq/L Estimated GFR 77 L (>89) mL/min POC Glucose 367 H (68-110) mg/dl Random Glucose 384 H (74-106) mg/dL 10/22/18 10/22/18 Range/Units 01:58 06:51 Hgb (11.6-15.3) gm/dL Hct (35.0-46.0) % MCH 26.9 L (27.0-34.0) pg Eos % (Auto) 4.6 H (0.0-4.0) % Sodium (136-145) meq/L Potassium (3.5-5.1) meq/L Chloride (98-107) meq/L Estimated GFR (>89) mL/min POC Glucose 116 H (68-110) mg/dl Random Glucose (74-106) mg/dL Short CBC 10/21/18 10/22/18 Range/Units 18:26 06:51 WBC 9.4 8.7 (4.0-11.0) th/mm3 Hgb 11.1 L 11.7 (11.6-15.3) gm/dL Hct 34.6 L 36.2 (35.0-46.0) % Plt Count 371 402 (150-450) th/mm3 BMP 10/21/18 18:26 Sodium 134 L Potassium 3.3 L Chloride 96 L Carbon Dioxide 30.7 BUN 13 Creatinine 0.83 Calcium 8.8 Urine 10/21/18 Range/Units 18:26 Urine Color Straw (Yellw/Straw) Urine Clarity Clear (Clear) Urine pH 7.0 (5.0-8.5) Ur Specific [place] 1.015 (1.002-1.035) Urine Protein Negative (Neg-Trace) mg/dL Urine Glucose (UA) 500 or greater (Negative) mg/dL <Jaime Woodyantha - 10/22/18 09:19> - Imaging Impressions Chest X-Ray 10/21/18 17:56 CONCLUSION: 1. Ill-defined focal parenchymal opacity in the left upper lobe medially which may reflect developing airspace disease in the appropriate clinical setting. Chest X-Ray 10/22/18 00:00 CONCLUSION: No acute cardiopulmonary disease. <Con Camp - 10/22/18 14:53> Impressions Chest X-Ray 10/21/18 17:56 CONCLUSION: 1. Ill-defined focal parenchymal opacity in the left upper lobe medially which may reflect developing airspace disease in the appropriate clinical setting. <TirerasavitamilagrosEarline - 10/22/18 09:19> Physical Exam Vital signs: Vital Signs 10/21/18 17:38 10/21/18 21:29 10/22/18 04:24 Temperature 97.9 F 97.6 F Pulse Rate 102 H 94 H 84 Respiratory Rate 20 18 18 Blood Pressure 137/63 119/59 L 108/61 Pulse Oximetry 98 99 96 10/22/18 08:00 10/22/18 12:00 Temperature 98.2 F 98.4 F Pulse Rate 83 81 Respiratory Rate 16 16 Blood Pressure 109/61 100/64 Pulse Oximetry 96 99 Intake & Output 10/21/18 10/22/18 10/22/18 18:59 06:59 18:59 Intake Total 1440 / 1440 100 / 100 Balance 1440 / 1440 100 / 100 Weight 58.967 kg Intake: IV 1200 / 1200 100 / 100 Doxy 100 Inj 100 MG In NS Inj 100 / 100 100 / 100 100 ML @ 100 mls/hr IV.SIG Q12H COUNTS INCLUDE 234 BEDS AT THE [facility] Rx#:[id number] Oral 240 / 240 Other: # Voids 0 <Con Camp - 10/22/18 14:53> Vital Signs 10/21/18 17:38 10/21/18 21:29 10/22/18 04:24 Temperature 97.9 F 97.6 F Pulse Rate 102 H 94 H 84 Respiratory Rate 20 18 18 Blood Pressure 137/63 119/59 L 108/61 Pulse Oximetry 98 99 96 10/22/18 08:00 Temperature 98.2 F Pulse Rate 83 Respiratory Rate 16 Blood Pressure 109/61 Pulse Oximetry 96 Intake & Output 10/21/18 10/22/18 10/22/18 18:59 06:59 18:59 Intake Total 1440 / 1440 Balance 1440 / 1440 Weight 58.967 kg Intake: IV 1200 / 1200 Doxy 100 Inj 100 MG In NS Inj 100 / 100 100 ML @ 100 mls/hr IV.SIG ONCE ONE Rx#:[id number] Oral 240 / 240 Other: # Voids 0 <Earline Woody - 10/22/18 09:19> Narrative: GENERAL: Well-appearing female, laying comfortably in bed, in no acute distress. SKIN: Warm and dry. HEAD: Atraumatic. Normocephalic. EYES: Pupils equal and round. No scleral icterus. No injection or drainage. ENT: No nasal bleeding or discharge. Mucous membranes pink and moist. NECK: Trachea midline. No JVD. CARDIOVASCULAR: Regular rate and rhythm. RESPIRATORY: No accessory muscle use. Clear to auscultation. Breath sounds equal bilaterally. GASTROINTESTINAL: Abdomen soft, non-tender, nondistended. Hepatic and splenic margins not palpable. MUSCULOSKELETAL: Extremities without clubbing, cyanosis, or edema. No obvious deformities. NEUROLOGICAL: Awake and alert. No obvious cranial nerve deficits. Motor grossly within normal limits. PSYCHIATRIC: Appropriate mood and affect; insight and judgment normal. <Earline Woody - 10/22/18 10:40> Assessment and Plan - Assessment (1) Uncontrolled type 2 diabetes mellitus Code(s): E11.65 - Type 2 diabetes mellitus with hyperglycemia Status: Acute (2) Pneumonia Code(s): J18.9 - Pneumonia, unspecified organism Status: Acute (3) Prolonged QT interval Code(s): R94.31 - Abnormal electrocardiogram [ECG] [EKG] Status: Acute (4) Hypokalemia Code(s): E87.6 - Hypokalemia Status: Acute (5) Anemia Code(s): D64.9 - Anemia, unspecified Status: Acute (6) Hyperlipidemia Code(s): E78.5 - Hyperlipidemia, unspecified Status: Acute (7) Nutrition, metabolism, and development symptoms Code(s): R63.8 - Other symptoms and signs concerning food and fluid intake Status: Acute <Con Camp - 10/22/18 14:53> (1) Uncontrolled type 2 diabetes mellitus Code(s): E11.65 - Type 2 diabetes mellitus with hyperglycemia Status: Acute Plan: 30-year-old female with a history of uncontrolled type 2 diabetes and hyperlipidemia presents to the ED dizziness and nausea secondary to elevated blood sugars. POC glucose this AM controlled: 101, 116 on Levimir 5 units BID. Continue to monitor how many units patient need on sliding scale. So far no Novolog needed. Hypoglycemia protocol in place Patient needs extensive education on insulin administration on dietary habits. [employer] at bedside. family educator and [employer] consulted (2) Pneumonia Code(s): J18.9 - Pneumonia, unspecified organism Status: Acute Plan: Patient reports 4-5-month history of persistent dry cough. DDx: Bacterial pneumonia vs viral pneumonia vs TB -Chest x-ray demonstrates ill-defined focal parenchymal opacity in the left upper lobe medially which may reflect developing airspace disease. -Pro-calcitonin of 0.04 -Negative for influenza A and B -Repeat Chest XRAY ordered -Legionella and pneumococcal antigen uncollected -Tuberculin PPD test ordered -Blood cultures x2 pending -Continue Rocephin 1 g IV every 24 hours and doxycycline 100 mg every 12 hours IV (3) Prolonged QT interval Code(s): R94.31 - Abnormal electrocardiogram [ECG] [EKG] Status: Acute Plan: Prolonged QT interval seen on EKG, QTc 517 Continue to monitor with cardiac telemetry Avoid agents that may prolong QT interval (4) Hypokalemia Code(s): E87.6 - Hypokalemia Status: Acute Plan: Potassium 3.3 on admission. 3.4 today. 40 mEq given today. Patient received 20 mEq orally in the ED Continue to monitor and replace as needed (5) Anemia Code(s): D64.9 - Anemia, unspecified Status: Acute Plan: H&H of 11.1/34.6, MCV of 83.1, most likely due to anemia of chronic disease (6) Hyperlipidemia Code(s): E78.5 - Hyperlipidemia, unspecified Status: Acute Plan: Continue atorvastatin 40 mg at bedtime (7) Nutrition, metabolism, and development symptoms Code(s): R63.8 - Other symptoms and signs concerning food and fluid intake Status: Acute Plan: Fluids: None Diet: Diabetic diet Electrolytes: Monitor and replace as needed Vitals every 4, monitor I's and O's DVT prophylaxis: SCDs <Earline Woody - 10/22/18 12:19> - Attending Attestation Patient examined independently of resident physicians and patient case discussed with resident physician I have read the above note and agree with the assessment/plan as discussed with me I was involved in all medical decision making for this patient Con Camp MD <Con Camp - 10/22/18 14:53>
[2018-10-22 09:25] LABS: Alanine Aminotransferase 17 U/L (10-53); Albumin 3.1 g/dL (3.4-5.0); Alkaline Phosphatase 61 U/L (45-117); Anion Gap 6 meq/L (5-15); Aspartate Aminotransferase 12 U/L (15-37); Blood Urea Nitrogen 8 mg/dL (7-18); Calcium 8.7 mg/dL (8.5-10.1); Carbon Dioxide 31.7 meq/L (21.0-32.0); Chloride 103 meq/L (98-107); Glomerular Filtration Rate Greater Than 89 mL/min (>89); Glucose,Random 154 mg/dL (74-106); Potassium 3.3 meq/L (3.5-5.1); Sodium 141 meq/L (136-145); Total Protein 6.6 g/dL (6.4-8.2)
[2018-10-22] MEDS: Acetaminophen 325 MG Tablet PO PRN ×2 (09:46→13:43)
[2018-10-22] MEDS: Insulin Detemir Inj 1,000 UNIT/10 ML Vial SQ SCH ×2 (09:47→21:55)
--- NOTE | 2018-10-22 10:31 | ECG ---
Date Performed: 10/21/2018 Time Performed: 19:05:37 PTAGE: 38 years EKG: Sinus rhythm POSSIBLE LEFT ATRIAL ENLARGEMENT NONSPECIFIC T-WAVE ABNORMALITY PROLONGED QT INTERVAL ABNORMAL ECG NO PREVIOUS TRACING DOCTOR: Fredis Philippe Interpretating Date/Time 10/22/2018 10:28:31
--- NOTE | 2018-10-22 12:30 | XR ---
EXAM DATE: 10/22/2018 12:26 PM EST AGE/SEX: 38 years / Female INDICATIONS: . Shortness of breath. CLINICAL DATA: This is the patient's subsequent encounter. Patient reports that signs and symptoms h ave been present for 2 days and indicates a pain score of 0/10. MEDICAL/SURGICAL HISTORY: Diabetes mellitus type II. None. COMPARISON: [facility] [place], CHEST 1V SINGLE AP, 10/21/2018. . FINDINGS: The lungs are clear without infiltrate, nodule, or mass. There is no appreciable pleural effusion for technique. Heart and mediastinum are unremarkable. The previously seen density left up per lung could have been overlap of the first costochondral junction and technical. CONCLUSION: No acute cardiopulmonary disease. Electronically signed by: Cande Kennedy MD Board Certified Radiologist 10/22/2018 12:28 PM EST
[2018-10-22] MEDS: Gabapentin 100 MG Capsule PO SCH (22:31)
[2018-10-23] MEDS ORDERED: Insulin Detemir Inj 1,000 UNIT/10 ML Vial SQ SCH (09:00)
[2018-10-23] MEDS: Gabapentin 100 MG Capsule PO SCH ×2 (09:43→12:12)
[2018-10-23] MEDS: Insulin NovoLOG Aspart Correctional Sugar Inj SQ SCH ×2 (09:46→12:12)
--- NOTE | 2018-10-23 10:50 | P.PNFP ---
Subjective Interval history: Patient seen and examined at bedside this morning. She no longer feels nauseous or has any episodes of vomiting overnight. She states that her cough is now improved. Feels stable enough to be discharged home today. She denies any chest pain, shortness of breath, abdominal pain, problems with urination or defecation. <Earline Woody - 10/23/18 12:46> Results - Labs Result diagrams: 10/22/18 06:51 10/22/18 06:51 <Con Camp - 10/23/18 13:21> Abnormal lab results 10/22/18 10/22/18 10/22/18 Range/Units 13:47 18:10 21:59 POC Glucose 256 H 226 H 281 H (68-110) mg/dl 10/23/18 10/23/18 10/23/18 Range/Units 04:54 09:46 12:11 POC Glucose 149 H 164 H 261 H (68-110) mg/dl <Con Camp - 10/23/18 13:21> Abnormal lab results 10/22/18 10/22/18 10/22/18 Range/Units 13:47 18:10 21:59 POC Glucose 256 H 226 H 281 H (68-110) mg/dl 10/23/18 10/23/18 Range/Units 04:54 09:46 POC Glucose 149 H 164 H (68-110) mg/dl <Earline Woody - 10/23/18 10:50> - Imaging Impressions Chest X-Ray 10/22/18 00:00 CONCLUSION: No acute cardiopulmonary disease. <Earline Woody - 10/23/18 10:50> Physical Exam Vital signs: Vital Signs 10/22/18 16:00 10/22/18 17:11 10/22/18 20:00 Temperature 99.0 F 98.5 F Pulse Rate 92 H 91 H 98 H Respiratory Rate 16 16 Blood Pressure 102/55 L 118/57 L Pulse Oximetry 97 96 10/23/18 00:00 10/23/18 05:14 10/23/18 07:18 Temperature 97.8 F 98.3 F 98.6 F Pulse Rate 92 H 90 89 Respiratory Rate 16 16 20 Blood Pressure 96/67 L 118/54 L 115/64 Pulse Oximetry 95 96 96 10/23/18 08:00 10/23/18 11:43 10/23/18 12:00 Temperature 98.2 F Pulse Rate 86 88 98 H Respiratory Rate 20 Blood Pressure 141/67 H Pulse Oximetry 97 Intake & Output 10/22/18 10/23/18 10/23/18 18:59 06:59 18:59 Intake Total 100 / 100 200 / 200 Balance 100 / 100 200 / 200 Intake: IV 100 / 100 200 / 200 Doxy 100 Inj 100 MG In NS Inj 100 / 100 100 / 100 100 ML @ 100 mls/hr IV.SIG Q12H [facility] Rx#:[id number] Rocephin Inj 1,000 MG In NS Inj 100 / 100 100 ML @ 200 mls/hr IV.SIG Q24H [facility] Rx#:[id number] Other: # Voids 7 <Con Camp - 10/23/18 13:21> Vital Signs 10/22/18 12:00 10/22/18 16:00 10/22/18 17:11 Temperature 98.4 F 99.0 F Pulse Rate 81 92 H 91 H Respiratory Rate 16 16 Blood Pressure 100/64 102/55 L Pulse Oximetry 99 97 10/22/18 20:00 10/23/18 00:00 10/23/18 05:14 Temperature 98.5 F 97.8 F 98.3 F Pulse Rate 98 H 92 H 90 Respiratory Rate 16 16 16 Blood Pressure 118/57 L 96/67 L 118/54 L Pulse Oximetry 96 95 96 10/23/18 07:18 10/23/18 08:00 Temperature 98.6 F Pulse Rate 89 86 Respiratory Rate 20 Blood Pressure 115/64 Pulse Oximetry 96 Intake & Output 10/22/18 10/23/18 10/23/18 18:59 06:59 18:59 Intake Total 100 / 100 200 / 200 Balance 100 / 100 200 / 200 Intake: IV 100 / 100 200 / 200 Doxy 100 Inj 100 MG In NS Inj 100 / 100 100 / 100 100 ML @ 100 mls/hr IV.SIG Q12H [facility] Rx#:[id number] Rocephin Inj 1,000 MG In NS Inj 100 / 100 100 ML @ 200 mls/hr IV.SIG Q24H [facility] Rx#:[id number] Other: # Voids 7 <Earline Woody - 10/23/18 10:50> Narrative: CONSTITUTIONAL/GEN: Healthy-appearing female, normally nourished, in NAD. EYES: conjunctiva normal, PERRLA, EOMI. ENT: Mouth and pharynx normal. CVS: Grade 2 systolic murmur appreciated on the left sternal border. Regular rate and rhythm. LUNGS: clear A-P, respiratory effort is normal. PSYCH/MENTAL STATUS: Alert and oriented x 3. <Earline Woody - 10/23/18 12:51> Assessment and Plan - Assessment (1) Uncontrolled type 2 diabetes mellitus Code(s): E11.65 - Type 2 diabetes mellitus with hyperglycemia Status: Acute (2) Pneumonia Code(s): J18.9 - Pneumonia, unspecified organism Status: Acute (3) Prolonged QT interval Code(s): R94.31 - Abnormal electrocardiogram [ECG] [EKG] Status: Acute (4) Hypokalemia Code(s): E87.6 - Hypokalemia Status: Acute (5) Anemia Code(s): D64.9 - Anemia, unspecified Status: Acute (6) Hyperlipidemia Code(s): E78.5 - Hyperlipidemia, unspecified Status: Acute (7) Nutrition, metabolism, and development symptoms Code(s): R63.8 - Other symptoms and signs concerning food and fluid intake Status: Acute <Con Camp - 10/23/18 13:21> (1) Uncontrolled type 2 diabetes mellitus Code(s): E11.65 - Type 2 diabetes mellitus with hyperglycemia Status: Acute Plan: 30-year-old female with a history of uncontrolled type 2 diabetes and hyperlipidemia presents to the ED dizziness and nausea secondary to elevated blood sugars. POC glucose: 153, 256, 226, 281, 149. Required 13 units of sliding scale throughout the day. Will increase Levemir to 12 units twice daily. Will recheck blood glucose levels in the afternoon. If stable patient to be DC'd home. Diabetes education to be arranged at as an outpatient. Follow-up with PCP Dr. Woody on 10/25 at 2:50 PM. (2) Pneumonia Code(s): J18.9 - Pneumonia, unspecified organism Status: Acute Plan: Patient reports 4-5-month history of persistent dry cough. DDx: Bacterial pneumonia vs viral pneumonia vs TB Initial Chest x-ray demonstrates ill-defined focal parenchymal opacity in the left upper lobe medially which may reflect developing airspace disease. Repeat chest x-ray shows no cardiopulmonary disease. Patient has been afebrile, normal white count, clinically well-appearing, no signs or symptoms of sepsis, vital signs stable. No consolidation noticed on repeat chest x-ray. Not concerning for pneumonia. Will DC azithromycin and Rocephin. TB test to be read at a nursing visit tomorrow at PCP. TB test: No induration noted -Pro-calcitonin of 0.04 -Negative for influenza A and B -Legionella and pneumococcal antigen negative. -Blood cultures: no growth in 2 says. (3) Prolonged QT interval Code(s): R94.31 - Abnormal electrocardiogram [ECG] [EKG] Status: Acute Plan: Prolonged QT interval seen on EKG, QTc 517 Continue to monitor with cardiac telemetry Avoid agents that may prolong QT interval (4) Hypokalemia Code(s): E87.6 - Hypokalemia Status: Acute Plan: Potassium 3.3 on admission. 3.4 today. 40 mEq given yesterday Patient received 20 mEq orally in the ED Continue to monitor and replace as needed (5) Anemia Code(s): D64.9 - Anemia, unspecified Status: Acute Plan: H&H of 11.1/34.6, MCV of 83.1, most likely due to anemia of chronic disease (6) Hyperlipidemia Code(s): E78.5 - Hyperlipidemia, unspecified Status: Acute Plan: Continue atorvastatin 40 mg at bedtime (7) Nutrition, metabolism, and development symptoms Code(s): R63.8 - Other symptoms and signs concerning food and fluid intake Status: Acute Plan: Fluids: None Diet: Diabetic diet Electrolytes: Monitor and replace as needed Vitals every 4, monitor I's and O's DVT prophylaxis: SCDs <Earline Woody - 10/23/18 12:52> - Attending Attestation Pt. examined and case discussed with resident physicians during medical rounds this morning I have examined the patient and agree with the assessment/plan as dictated above. I was involved in all medical decision making for this patient Con Camp MD <Con Camp - 10/23/18 13:21>
--- NOTE | 2018-10-23 14:07 | P.DS ---
Date of admission: 10/21/18 19:54 Primary care physician: No Primary Care Physician Brief History from admission: 30-year-old female presenting to the emergency department with a complaint of elevated blood sugars and coughing. Patient has been seen in the [facility] for uncontrolled blood sugars associated with vomiting and dizziness for 4-5 days. She endorses dizziness associated with this nausea and vomiting. She also endorses nausea. She does check her blood sugars at home, they are commonly in the 100-150 range, however they have been running in the 400-500 range over the last several days. Patient also has a persistent, dry cough lasting approximately 4-5 months. She has been evaluated with a chest x-ray on 05/19/18 that was negative, and recently completed a course of azithromycin and prednisone with minimal improvement. DS: Diagnosis - Discharge Diagnosis (1) Uncontrolled type 2 diabetes mellitus Status: Acute (2) Pneumonia Status: Acute (3) Prolonged QT interval Status: Acute (4) Hypokalemia Status: Acute (5) Anemia Status: Acute (6) Hyperlipidemia Status: Acute (7) Nutrition, metabolism, and development symptoms Status: Acute DS: Medications - Discharge Medications Prescriptions: dapagliflozin [Farxiga] 10 mg PO DAILY #30 tab insulin detemir U-100 [Levemir U-100 Insulin] 12 unit SUBCUT BID #3 pen DS: Summary Hospital Course: 38-year-old female with a past medical history of poorly controlled diabetes, hyperlipidemia presents with nausea and vomiting secondary to hyperglycemia. Patient initially was on Actos and Farxiga but was switched to Levemir 12 units twice daily in hospital. [id number] glucose stabilized. Patient was also found to have a cough for 2 months. Was found to have a consolidation on initial x-ray but on repeat x-ray was negative. Legionella, pneumonia, influenza and CBC were negative. TB test showed no induration or erythema during hospital stay. Patient was sent home on Levemir 12 units twice daily and Farxiga. Pt was told to discontinue Actos. She is to follow-up with diabetes education during the weekend to follow-up with her primary care physician for insulin education and follow-up TB skin test. - Time Spent with Patient Total time spent providing and/or coordinating discharge services: Less than 30 minutes - Quality: VTE Deep Vein Thrombosis/Pulmonary Embolism Present on Admission: No Exam Vital signs: Vital Signs 10/22/18 16:00 10/22/18 17:11 10/22/18 20:00 Temperature 99.0 F 98.5 F Pulse Rate 92 H 91 H 98 H Respiratory Rate 16 16 Blood Pressure 102/55 L 118/57 L Pulse Oximetry 97 96 10/23/18 00:00 10/23/18 05:14 10/23/18 07:18 Temperature 97.8 F 98.3 F 98.6 F Pulse Rate 92 H 90 89 Respiratory Rate 16 16 20 Blood Pressure 96/67 L 118/54 L 115/64 Pulse Oximetry 95 96 96 10/23/18 08:00 10/23/18 11:43 10/23/18 12:00 Temperature 98.2 F Pulse Rate 86 88 98 H Respiratory Rate 20 Blood Pressure 141/67 H Pulse Oximetry 97 Intake & Output 10/22/18 10/23/18 10/23/18 18:59 06:59 18:59 Intake Total 100 / 100 200 / 200 Balance 100 / 100 200 / 200 Intake: IV 100 / 100 200 / 200 Doxy 100 Inj 100 MG In NS Inj 100 / 100 100 / 100 100 ML @ 100 mls/hr IV.SIG Q12H [facility] Rx#:[id number] Rocephin Inj 1,000 MG In NS Inj 100 / 100 100 ML @ 200 mls/hr IV.SIG Q24H [facility] Rx#:[id number] Other: # Voids 7 Narrative: CONSTITUTIONAL/GEN: Healthy-appearing female, normally nourished, in NAD. EYES: conjunctiva normal, PERRLA, EOMI. ENT: Mouth and pharynx normal. CVS: Grade 2 systolic murmur appreciated on the left sternal border. Regular rate and rhythm. LUNGS: clear A-P, respiratory effort is normal. PSYCH/MENTAL STATUS: Alert and oriented x 3. Results Procedures completed during hospitalization: None Labs on day of discharge: Labs from last 24 hours 10/23/18 10/23/18 10/23/18 12:11 09:46 04:54 POC Glucose 261 H 164 H 149 H 10/22/18 10/22/18 21:59 18:10 POC Glucose 281 H 226 H Preliminary micro results at discharge 10/21/18 20:20 Aerobic Blood Culture - Preliminary Blood - Peripheral No growth in 2 days Anaerobic Blood Culture - Preliminary No growth in 2 days 10/21/18 20:30 Aerobic Blood Culture - Preliminary Blood - Peripheral No growth in 2 days Anaerobic Blood Culture - Preliminary No growth in 2 days - Impressions ITS Impressions Chest X-Ray 10/22/18 00:00 CONCLUSION: No acute cardiopulmonary disease. Discharge Plan - Discharge Disposition Patient Disposition: 01 Discharge Home - Discharge Condition Condition: Stable - Discharge Order Discharge Orders: Discharge Order (Routine); Ordered 10/23/18 Ordered By: Earline Woody ED Use Only Admit Order (Routine); Ordered 10/21/18 Ordered By: Israel Salas - Physicians Team Primary Care Provider: Primary Care Yadira Mendoza Attending Provider: Con Camp
== END 2018-10-23 14:19 | disposition home or self-care (01) ==
LOC: NEPC 17:35 → NEDA 19:54 → NEPGCP 10-22 00:10
PROVIDERS: ADMIT Family Medicine; ATTEND Family Medicine